=== PATIENT | female | born 1975 | race Caucasian/White ===

== ENCOUNTER 2025-01-05 12:40 | Emergency (ER) | payer OTHER, SELFPAY ==
[2025-01-05 12:40] VITALS: BMI 22.6
[2025-01-05 12:44] VITALS: BP 125/81
[2025-01-05 13:00] LABS: % Basophils 0.4 % (0-2); % Eosinophils 2.1 % (0-6); % Immature Granulocytes 0.3 % (0-0.5); % Lymphocytes 23.4 % (20.5-51.1); % Monocytes 5.9 % (1.7-9.3); % Neutrophils 67.9 % (42.2-75.2); Absolute Eosinophils 0.2 10^3/uL (0-0.7); Absolute Lymphocytes 2.2 10^3/uL (1.2-3.4); Absolute Monocytes 0.6 10^3/uL (0.1-0.6); Absolute Neutrophils 6.5 10^3/uL (1.4-6.5); Hematocrit 42.4 % (37.0-47.0); Hemoglobin 14.6 g/dL (12.0-16.0); Mean Corp Hgb Conc. 34.4 g/dL (33.0-37.0); Mean Corpuscular Hgb 32.2 pg (27.0-31.0); Mean Corpuscular Volume 93.6 fL (81.0-99.0); Mean Platelet Volume 8.6 fL (7.4-10.4); Nucleated Red Blood Cells % 0 %; Platelet Count 281 10^3/uL (130-400); Red Blood Cell Count 4.53 10^6/uL (4.20-5.40); Red Cell Dist. Width 11.9 % (11.5-14.5); White Blood Cell Count 9.6 10^3/uL (4.8-10.8)
[2025-01-05 13:14] LABS: HCG, Serum Qualitative Screen Negative
[2025-01-05 13:16] LABS: ALT (SGPT) 20 U/L (0-35); AST (SGOT) 20 U/L (14-36); Albumin 4.9 g/dl (3.5-5.0); Alkaline Phosphatase 90 U/L (38-126); Blood Urea Nitrogen 14 mg/dl (7-17); Calcium 9.6 mg/dl (8.4-10.2); Carbon Dioxide 26 mmol/L (22-30); Chloride 100 mmol/L (98-107); Glucose 98 mg/dl (70-99); Potassium 4.1 mmol/L (3.5-5.1); Sodium 135 mmol/L (135-145); Total Bilirubin 0.5 mg/dl (0.2-1.3); Total Protein 7.7 g/dl (6.3-8.2); eGFR > 60.00
[2025-01-05 13:31] LABS: Lipase 108 U/L (23-300)
[2025-01-05 15:10] VITALS: BP 130/78
--- NOTE | 2025-01-05 15:35 | ED.GENMED ---
History of Present Illness
General
Chief Complaint: Rectal Bleeding
Source: patient
Exam Limitations: none
Time Seen by Provider: 01/05/25 15:29
History of Present Illness
History of Present Illness:
49-year-old female otherwise healthy presents with onset of left lower quadrant abdominal pain with associated bloody stools. She notes it is red blood. The bleeding has slowed down but the pain persist. She denies fevers or vomiting. No prior
abdominal surgical history. She is not anticoagulated. No prior issues similar to this. She describes the pain as cramping in nature does not radiate to the back no urinary symptoms.
Phy Exam
Physical Exam
Physical Exam:
General: Well-appearing female no acute respiratory distress
HEENT: Normocephalic atraumatic
Heart: Regular rate and rhythm no murmurs
Lungs: Clear no wheeze
Abdomen soft tender to left lower quadrant no guarding rebound normal bowel sounds
Extremities: No cyanosis or edema
Course
Orders/Labs/Results
Orders:
Orders
01/05/25 12:48
Test Result ONCE
01/05/25 12:54
Complete Blood Count/With Diff Urgent
Comprehensive Metabolic Panel Urgent
HCG, Serum Qualitative Screen Urgent
Lipase Urgent
01/05/25 15:35
CT Abd/pelvis W Iv Cont Urgent
Comment:
Reason For Exam: LLq pain, bloody stool
01/05/25 18:07
Amoxicillin 875 mg/Clav 125 mg [Augmentin 875 mg/125 mg] 1 tablet PO NOW STA
Abnormal Lab Results
01/05/25
12:54
MCH 32.2 H pg
(27.0-31.0)
01/05/25 12:54
01/05/25 12:54
Vital Signs
Initial and Last Documented VS:
Initial Vital Signs
Temp Pulse Resp BP Pulse Ox
97.9 F 99 18 125/81 100
01/05/25 12:44 01/05/25 12:44 01/05/25 12:44 01/05/25 12:44 01/05/25 12:44
Last Documented Vital Signs
Temp Pulse Resp BP Pulse Ox
97.9 F 76 16 133/76 99
01/05/25 12:44 01/05/25 16:00 01/05/25 16:00 01/05/25 16:00 01/05/25 16:00
MDM/Problems Addressed
Differential Diagnosis Includes:
Abdominal pain with rectal bleeding. Consider diverticulitis versus colitis versus hemorrhoid. Evaluate for anemia due to described blood loss
Patient quite tender on exam. Will order CT scan of abdomen to evaluate for sources of pain. Labs reviewed not anemic. She is not anticoagulated. Vital signs stable
*Critical Care Note
Total Time (30-74mins, 75-104mins- exclusive of procedures): Not Applicable
Update Note
Update Note:
CT shows colitis. Unlikely to be ischemic given otherwise healthy state. Will start Augmentin. Unable to provide sample. Return precautions given, no indication for admission.
ED Attending Note
-
Portions of this chart may have been created with voice recognition software.� Occasional wrong word or��sound alike� substitutions may have occurred due to the inherent limitations of voice recognition software.
Discharge Plan
Departure
Patient Disposition: Home (Routine Discharge)
Date of Disposition: 01/05/25
Time of Disposition: 18:11
Patient with high blood pressure during this ER visit?: No
Discharge Problem:
Colitis
Instructions: Colitis
Prescriptions:
New
amoxicillin-pot clavulanate 875-125 mg tablet
1 tab PO BID Qty: 14 0RF
Referrals:
Stevan Dempsey, DO [Family Provider] -
Activity Restrictions/Additional Instructions:
Drink plenty clear liquids. Use Tylenol as needed for pain. Take antibiotics as directed. Please return here for increasing pain vomiting fever or other concerning findings.
Interventions
Interventions:
*Risk Screen - Suicide Last Done: 01/05/25 12:44
*General Assessment Last Done: 01/05/25 12:44
*Neglect/Abuse Screening Last Done: 01/05/25 12:44
ED- Fall Risk Assessment Last Done: 01/05/25 15:43
*ED COVID-19 Vaccine History Last Done: 01/05/25 12:44
LU-Kgnyxs-Kztdbbejqr Assessment Last Done: 01/05/25 15:43
ED- Cardiac Assessment Last Done: 01/05/25 15:43
ED- Pulmonary Assessment Last Done: 01/05/25 15:43
Discharge Date and Time
Print Language: [id number]
[2025-01-05 16:00] VITALS: BP 133/76
[2025-01-05] MEDS: AUGMENTIN 875 MG/125 MG 1 TABLET PO (18:19)
== END 2025-01-05 18:23 | disposition home or self-care (01) ==
LOC: EMR 12:40
PROVIDERS: Emergency Medicine; EMERGENCY PHYSICIAN Emergency Medicine; FAMILY PHYSICIAN Family Medicine
DX: K52.9 Noninfective gastroenteritis and colitis, unspecified (principal)
CPT/HCPCS: 99284; 74177; 80053; 83690; 84703; 85025; Q9967